=== PATIENT | female | born 2000 | race African-American/Black ===

== ENCOUNTER 2020-06-26 00:28 | Inpatient (IN) ==
[2020-06-26] MEDS ORDERED: MEPERIDINE 50 MG/1 ML VIAL IV PRN (00:41)
[2020-06-26] MEDS ORDERED: BUTORPHANOL 2 MG/ML VIAL IV PRN (00:41)
[2020-06-26] MEDS ORDERED: ONDANSETRON 4 MG/2 ML VIAL IV PRN (00:41)
[2020-06-26 01:04] LABS: Basophils % 0.1 % (0.0-0.8); Eosinophils # 0.1 10*3/uL (0.0-0.87); Eosinophils % 1.4 % (0.00-10.9); Hematocrit 30.4 VOL% (35.7-47.0); Hemoglobin 9.3 GM/DL (12.0-16.0); Immature Granulocytes % 0.5 %; Immature Granulocytes Absolute 0.04 #; Lymphocytes # 2.3 10*3/uL (1.4-4.0); Lymphocytes % 26.3 % (21.3-54.2); Mean Corpuscular HGB Conc 30.6 GM/DL (32-36); Mean Corpuscular Volume 77.7 FL (87-102); Mean Platelet Volume 9.4 FL (9.6-12.0); Monocytes % 7.4 % (1.7-12.7); Neutrophils % 64.3 % (38.7-73.9); Platelet Count 415 T/CUMM (130-400); Red Blood Count 3.91 MC/CUMM (3.8-5.5); Red Cell Distribution Width 15.5 % (9.3-17.3); White Blood Count 8.7 T/CUMM (4-12)
[2020-06-26 01:27] LABS: Alanine Aminotransferase 19 U/L (13-56); Albumin 2.4 G/DL (3.4-5.0); Alkaline Phosphatase 121 U/L (45-117); Aspartate Amino Transferase 18 U/L (0-37); Bilirubin,Total < 0.39 MG/DL (0.2-1.0); Blood Urea Nitrogen 10 MG/DL (7-18); Carbon Dioxide 24 MMOL/L (21-32); Estimated Glom Filtration Rate 166 ML/MIN; Glucose 79 MG/DL (74-106); Osmolality,Calculated 267.1 MOS/KG (273-304); Potassium 3.8 MMOL/L (3.5-5.1); Sodium 135 MMOL/L (136-145); Total Protein 7.9 G/DL (6.4-8.3)
[2020-06-26] MEDS: LACTATED RINGERS 1,000 ML IV SCH ×4 (02:05→15:49)
[2020-06-26 03:32] LABS: INR 0.9; Partial Thromboplastin Time 28.5 SECS (23.9-33.8)
[2020-06-26] MEDS ORDERED: FAMOTIDINE 20 MG/2 ML VIAL IV ONE (09:29)
[2020-06-26] MEDS ORDERED: ePHEDrine 50 MG/ML VIAL IV PRN (09:29)
[2020-06-26] MEDS ORDERED: NALOXONE 0.4 MG/ML VIAL IV PRN (09:29)
[2020-06-26] MEDS ORDERED: hydrOXYzine HCL 25 MG/1 ML VIAL IM PRN (09:29)
[2020-06-26] MEDS ORDERED: diphenhydrAMINE 50 MG/1 ML VIAL IV PRN (09:29)
[2020-06-26] MEDS ORDERED: PROMETHAZINE 25 MG/1 ML VIAL IM PRN (09:29)
[2020-06-26] MEDS ORDERED: CITRIC ACID/SODIUM CITRATE 30 ML UDCUP PO ONE (09:29)
[2020-06-26] MEDS ORDERED: OXYTOCIN/LR 20 UNIT/1,000 ML BAG IV SCH (10:00)
[2020-06-26] MEDS: fentaNYL 2 MCG/ROPIV 0.2% EPID 100 ML EPIDURAL SCH ×2 (10:17→23:27)
[2020-06-26 11:20] LABS: Bilirubin,Urine Negative (Negative); Blood, Urine Negative (Negative); Glucose,Urine (UA) Negative (Negative); Ketones,Urine Negative (Negative); Mucus,Urine Many /LPF (Occasional); Nitrite,Urine Negative (Negative); Protein,Urine Negative; RBC,Urine 2 /HPF (0-4); Squamous Epithelial Cell,Urine Occasional /HPF (0-10); Urine Appearance CLEAR (Clear); Urine Color Yellow (Yellow); Urine Specific Gravity 1.023 (1.001-1.035); WBC,Urine 4 /HPF (0-6)
[2020-06-26] MEDS ORDERED: ceFAZolin 3,000 MG in SYRINGE 1 EACH IV ONE (17:26)
[2020-06-26] MEDS ORDERED: OXYTOCIN/LR 30 UNIT/1,000 ML BAG IV ONE (17:29)
[2020-06-26] MEDS ORDERED: OXYTOCIN 10 UNIT/ML VIAL IM ONE (17:29)
[2020-06-26] MEDS ORDERED: TRANEXAMIC ACID 1,000 MG/10 ML VIAL ONE (17:48)
[2020-06-26] MEDS ORDERED: miSOPROStoL 200 MCG TABLET ONE (17:48)
[2020-06-26] MEDS ORDERED: METHYLERGONOVINE 0.2 MG/1 ML AMP ONE (17:48)
[2020-06-26] MEDS ORDERED: CARBOPROST TROMETHAMINE 250 MCG/ML AMP IM ONE (17:49)
[2020-06-26] MEDS ORDERED: ONDANSETRON 4 MG/2 ML VIAL ONE (17:54)
[2020-06-26] MEDS ORDERED: PHENYLEPHRINE 1 MG/10 ML SYRINGE IV ONE (17:54)
[2020-06-26] MEDS ORDERED: LIDOCAINE MPF 2% /EPI 20 ML VIAL ONE (17:54)
[2020-06-26] MEDS ORDERED: MORPHINE 10 MG/10 ML VIAL ONE (18:19)
[2020-06-26 18:47] LABS: Cord Arterial Blood HCO3 23.7 MMOL/L
[2020-06-26 18:50] LABS: Cord Venous Blood HCO3 24.4 MMOL/L; Cord Venous Blood PO2 44.9
[2020-06-26] MEDS: oxyCODONE/ACETAMINOPHEN 5-325 MG TABLET PO PRN (21:00)
[2020-06-27] MEDS: ceFAZolin 1,000 MG in SYRINGE 1 EACH IV SCH ×2 (02:39→11:05)
[2020-06-27 02:50] LABS: Basophils % 0.2 % (0.0-0.8); Eosinophils % 0.1 % (0.00-10.9); Hematocrit 25.2 VOL% (35.7-47.0); Hemoglobin 7.8 GM/DL (12.0-16.0); Immature Granulocytes % 0.6 %; Immature Granulocytes Absolute 0.09 #; Lymphocytes # 1.5 10*3/uL (1.4-4.0); Lymphocytes % 10.2 % (21.3-54.2); Mean Corpuscular Volume 77.1 FL (87-102); Mean Platelet Volume 8.9 FL (9.6-12.0); Neutrophils % 82.9 % (38.7-73.9); Platelet Count 297 T/CUMM (130-400); Red Blood Count 3.27 MC/CUMM (3.8-5.5); Red Cell Distribution Width 15.5 % (9.3-17.3); White Blood Count 14.6 T/CUMM (4-12)
[2020-06-27] MEDS: LACTATED RINGERS 1,000 ML IV SCH (03:29)
[2020-06-27] MEDS: oxyCODONE/ACETAMINOPHEN 5-325 MG TABLET PO PRN ×2 (06:01→12:14)
[2020-06-27 09:45] LABS: Basophils % 0.2 % (0.0-0.8); Eosinophils % 0.1 % (0.00-10.9); Hematocrit 24.4 VOL% (35.7-47.0); Hemoglobin 7.6 GM/DL (12.0-16.0); Immature Granulocytes % 0.7 %; Immature Granulocytes Absolute 0.13 #; Lymphocytes # 1.4 10*3/uL (1.4-4.0); Mean Corpuscular HGB Conc 31.1 GM/DL (32-36); Mean Corpuscular Volume 77.5 FL (87-102); Mean Platelet Volume 9.1 FL (9.6-12.0); Monocytes % 5.8 % (1.7-12.7); Neutrophils % 85.2 % (38.7-73.9); Platelet Count 298 T/CUMM (130-400); Red Blood Count 3.15 MC/CUMM (3.8-5.5); Red Cell Distribution Width 15.7 % (9.3-17.3); White Blood Count 17.9 T/CUMM (4-12)
[2020-06-27] MEDS: DOCUSATE SODIUM 100 MG CAPSULE PO SCH ×2 (09:46→20:45)
[2020-06-27] MEDS: IBUPROFEN 800 MG TABLET PO PRN ×2 (11:20→20:46)
[2020-06-27] MEDS ORDERED: METOCLOPRAMIDE 10 MG TABLET PO SCH (17:30)
[2020-06-27] MEDS ORDERED: BISACODYL 10 MG SUPP RECTAL PRN (20:16)
[2020-06-27] MEDS ORDERED: SODIUM CHLORIDE 0.9% 1,000 ML IV PRN (20:31)
[2020-06-27] MEDS: MAGNESIUM HYDROXIDE SUSP 30 ML UDCUP PO SCH (20:45)
[2020-06-28] MEDS: IBUPROFEN 800 MG TABLET PO PRN ×3 (02:15→20:18)
[2020-06-28] MEDS: SIMETHICONE CHEW 80 MG TABLET PO PRN ×3 (04:00→20:19)
[2020-06-28 06:23] LABS: Basophils % 0.2 % (0.0-0.8); Eosinophils # 0.2 10*3/uL (0.0-0.87); Eosinophils % 1.2 % (0.00-10.9); Hematocrit 28.6 VOL% (35.7-47.0); Immature Granulocytes % 0.8 %; Immature Granulocytes Absolute 0.14 #; Lymphocytes # 2.3 10*3/uL (1.4-4.0); Lymphocytes % 12.4 % (21.3-54.2); Mean Corpuscular HGB Conc 32.2 GM/DL (32-36); Mean Corpuscular Volume 79.4 FL (87-102); Mean Platelet Volume 9.4 FL (9.6-12.0); Monocytes % 8.1 % (1.7-12.7); Neutrophils % 77.3 % (38.7-73.9); Platelet Count 303 T/CUMM (130-400); Red Cell Distribution Width 16.7 % (9.3-17.3); White Blood Count 18.2 T/CUMM (4-12)
[2020-06-28 06:28] LABS: Hemoglobin 9.2 GM/DL (12.0-16.0)
[2020-06-28] MEDS: FERROUS SULFATE 325 MG TABLET PO SCH ×2 (08:50→20:31)
[2020-06-28] MEDS: MAGNESIUM HYDROXIDE SUSP 30 ML UDCUP PO SCH ×2 (08:51→20:19)
[2020-06-28] MEDS: DOCUSATE SODIUM 100 MG CAPSULE PO SCH ×2 (08:51→20:18)
[2020-06-28] MEDS: oxyCODONE/ACETAMINOPHEN 5-325 MG TABLET PO PRN ×2 (08:53→20:17)
[2020-06-29] MEDS: oxyCODONE/ACETAMINOPHEN 5-325 MG TABLET PO PRN (02:16)
[2020-06-29] MEDS: IBUPROFEN 800 MG TABLET PO PRN (02:17)
[2020-06-29 07:25] VITALS: BP 133/74
[2020-06-29] MEDS: FERROUS SULFATE 325 MG TABLET PO SCH (08:37)
[2020-06-29] MEDS: MAGNESIUM HYDROXIDE SUSP 30 ML UDCUP PO SCH (08:37)
[2020-06-29] MEDS: DOCUSATE SODIUM 100 MG CAPSULE PO SCH (08:38)
== END 2020-06-29 13:35 | disposition home or self-care (01) | DRG 540 ==
LOC: N.LDOUT 00:28 → N.LD 00:29 → N.OB 23:05
PROVIDERS: ADMIT Obstetrics & Gynecology; ATTEND Obstetrics & Gynecology
PROC: LDCSECT (ICD-10-PCS; 2020-06-26 18:00)